=== PATIENT | female | born 2000 | race Caucasian/White ===

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

== ENCOUNTER 2020-03-12 15:00 | Emergency (ER) | payer OTHER, SELFPAY ==
[2020-03-12 15:08] VITALS: BP 132/72; PULSE 82; RESP 16; TEMP 36.5; O2SAT 100
--- NOTE | 2020-03-12 15:34 | ED_ITS ---
HPI - Female Genitourinary General Chief complaint: OB/Uterine Contractions Stated complaint: 11wks, lightheaded, dizzy, nausea, shakey Time Seen by Provider: 03/12/20 15:05 Source: patient Mode of arrival: Ambulatory Limitations: no limitations History of Present Illness HPI Narrative: 19-year-old female nonsmoker with noncontributory medical history is a at 11 weeks presents with some nausea and lightheadedness over the course of the past day or 2. Vomiting or diarrhea. She denies vaginal bleeding, discharge or leakage of fluid. She denies pelvic pain whatsoever. She recently had of ultrasound a few days ago that was normal and has had no pain or discomfort since. She denies any change in appetite or fever or chills. She has had no runny nose, sore throat or cough. She denies ear fullness, pain or discharge. MD Complaint: other Onset (ago): hour(s) Severity: mild Patient : Yes Associated symptoms: nausea/vomiting Related Data Allergies Allergy/AdvReac Type Severity Reaction Status Date / Time No Known Drug Allergies Allergy Verified 11/12/18 08:50 Review of Systems Constitutional Constitutional: Denies chills, Reports fatigue, Denies fever(s), Denies frequent falls, Denies lethargy and Denies weakness Eyes Eyes: Denies change in vision, Denies eye discharge, Denies irritation and Denies loss of vision ENT Ears, Nose, Mouth, and Throat: Denies change in voice, Denies dizziness, Denies neck pain, Denies sore throat and Denies throat swelling Cardiovascular Cardiovascular: Denies chest pain, Denies irregular heart rhythm, Reports lightheadedness, Denies palpitations, Denies dyspnea, Denies dyspnea on exertion and Denies orthopnea Respiratory Respiratory: Denies cough, Denies dyspnea, Denies dyspnea on exertion and Denies wheezing Gastrointestinal Gastrointestinal: Denies abdominal pain, Denies change in bowel habits, Denies diarrhea, Denies nausea and Denies vomiting Genitourinary Genitourinary: Denies hematuria, Denies flank pain, Denies urinary incontinence and Denies urinary urgency Musculoskeletal Musculoskeletal: Denies back pain, Denies muscle weakness, Denies neck pain, Denies numbness and Denies tingling Integumentary/Breasts Skin/Breast: Denies pruritus, Denies erythema, Denies rash and Denies wounds Neurologic Neurologic: Denies behavioral changes, Denies confusion, Denies dizziness, Denies frequent falls, Denies loss of vision, Denies numbness, Denies tingling and Denies weakness Psychiatric Psychiatric: Denies anxiety, Denies behavioral changes, Denies confusion, Denies depression, Denies homicidal ideation and Denies suicidal ideation Endocrine Endocrine: Reports fatigue, Denies flushing and Denies palpitations Hematologic/Lymphatic Hematologic/Lymphatic: Denies easy bruising Allergic/Immunologic Allergic/Immunologic: Denies urticaria, Denies throat swelling and Denies w heezing Patient History Substance Use Type: does not use Exam Narrative Exam Narrative: GENERAL: [] year old patient appears stated age. Well-nourished, well-developed patient, in mild distress. HEAD: Atraumatic. Normocephalic. EYES: Pupils equal round and reactive. Extraocular motions intact. No scleral icterus. No injection or drainage. ENT: Dry mucous membranes Nose without bleeding, purulent drainage. Throat without erythema, tonsillar hypertrophy or exudate. Airway patent. NECK: Trachea midline. Non tender CARDIOVASCULAR: Regular rate and rhythm without murmurs, gallops, or rubs. RESPIRATORY: Clear to auscultation. Breath sounds equal bilaterally. No wheezes, rales, or rhonchi. GASTROINTESTINAL: Abdomen soft, non-tender, nondistended. EXTREMITIES: No edema or joint tenderness. BACK: Nontender without deformity or crepitance. No flank tenderness. NEURO: AOx3. SKIN: No rash or erythema of visible areas Initial Vital Signs Initial Vital Signs: Vital Signs Temperature 97.7 F 03/12/20 15:08 Pulse Rate 82 03/12/20 15:08 Respiratory Rate 16 03/12/20 15:08 Blood Pressure 132/72 03/12/20 15:08 Pulse Oximetry 100 03/12/20 15:08 Course Course Course Narrative: Patient feeling significantly better after a L of fluid. Orders Ordered: ED Orders 03/12/20 15:50 Complete Blood Count AUTO DIFF Stat Comprehensive Metabolic Panel Stat HCG Quantitative /Beta subunit Stat Discontinued Medications Sodium Chloride (Normal Saline 0.9%) 1,000 mls @ 1,000 mls/hr IV BOLUS ONE Stop: 03/12/20 17:07 Last Infusion: 03/12/20 18:00 Dose: 0 mls/hr Documented by: Admin: 03/12/20 16:26 Dose: 1,000 mls/hr Documented by: GEENVA Sodium Chloride (Normal Saline 0.9%) 500 mls @ 1,000 mls/hr IV BOLUS ONE Stop: 03/12/20 18:07 Last Admin: 03/12/20 18:16 Dose: Not Given Documented by: GENEVA Vital Signs Vital signs: Vital Signs - 8 hr 03/12/20 15:08 03/12/20 16:42 03/12/20 17:47 Temperature 97.7 F Pulse Rate 82 77 Pulse Rate [Orthostatic Lying] 79 Pulse Rate [Orthostatic Sitting] 73 Pulse Rate [Orthostatic Standing] 76 Respiratory Rate 16 17 Blood Pressure 132/72 Blood Pressure [Left Arm] 102/57 L Blood Pressure [Orthostatic Lying] 104/57 L Blood Pressure [Orthostatic Sitting] 111/64 Blood Pressure [Orthostatic Standing] 111/66 Pulse Oximetry 100 100 MDM - Female Genitourinary Lab Data Result diagrams: 03/12/20 15:50 03/12/20 15:50 Labs: Lab Results 03/12/20 03/12/20 Range/Units 15:50 15:50 WBC 11.3 H (4.5-11.0) X10^3/uL RBC 4.53 (4.0-5.2) X10^6/uL Hgb 13.8 (12.0-16.0) g/dL Hct 40.2 (36-46) % MCV 88.8 (80-100) fL MCH 30.4 (26-34) PG MCHC 34.2 (30-36) % RDW 12.6 (11.6-14.8) % Plt Count 195 (150-400) X10^3/uL Neut % (Auto) 67.9 (50-75) % Lymph % (Auto) 24.8 L (25-40) % Gillespie % (Auto) 6.6 (3-14) % Eos % (Auto) 0.5 L (2-4) % Baso % (Auto) 0.2 (0-2) % Neut # (Auto) 7700 H (0335-8132) /uL Lymph # (Auto) 2800 (8635-2417) /uL Gillespie # (Auto) 800 (0-900) /uL Eos # (Auto) 100 (0-450) /uL Baso # (Auto) 0 (0-100) /uL Sodium 137 (137-145) mmol/L Potassium 4.0 (3.4-5.1) mmol/L Chloride 105 (98-107) mmol/L Carbon Dioxide 23 (22-32) mmol/L BUN 12 (7-17) mg/dL Creatinine 0.46 L (0.52-1.04) mg/dL Estimated GFR > 60.0 (>60) mL/min BUN/Creatinine Ratio 26.1 H (6-22) Glucose 73 (70-100) mg/dL Calcium 9.2 (8.4-10.2) mg/dL Total Bilirubin 0.4 (0.2-1.3) mg/dL AST 34 (14-36) IU/L ALT 22 (<35) IU/L Alkaline Phosphatase 34 L (38-126) U/L Total Protein 7.4 (6.3-8.2) g/dL Albumin 4.3 (3.5-5.0) g/dL Globulin 3.1 (1.7-4.1) g/dL Albumin/Globulin Ratio 1.4 (1.0-2.8) HCG, Quant [id number] mIU/mL Discharge Plan Departure Patient Disposition: Home Clinical Impression: Acute dehydration, Dizziness of unknown etiology Instructions: DI for Dehydration -- Adult Activity Restrictions/Additional Instructions: *You have been diagnosed with [ dizziness, likely a consequence of mild dehydration. Labs were very reassuring ] *What to do: *Take medications as directed *Follow up with your primary care provider in 2-3 days, call for an appointment. Let them know you were seen in the Emergency Department and that we ask that you be seen in follow up *Return to ER if you should have any new, worsening or concerning symptoms
[2020-03-12 15:56] LABS: Add Manual Diff / Slide Review NO; Basophils Absolute Auto 0 /uL (0-100); Basophils Percent Auto 0.2 % (0-2); Eosinophils Absolute Auto 100 /uL (0-450); Eosinophils Percent Auto 0.5 % (2-4); Hematocrit 40.2 % (36-46); Hemoglobin 13.8 g/dL (12.0-16.0); Lymphocytes Absolute Auto 2800 /uL (1100-4500); Lymphocytes Percent Auto 24.8 % (25-40); Mean Corpuscular HGB Conc 34.2 % (30-36); Mean Corpuscular Hemoglobin 30.4 PG (26-34); Mean Corpuscular Volume 88.8 fL (80-100); Monocytes Absolute Auto 800 /uL (0-900); Monocytes Percent Auto 6.6 % (3-14); Neutrophils Absolute Auto 7700 /uL (1500-7000); Neutrophils Percent Auto 67.9 % (50-75); Platelet Count 195 X10^3/uL (150-400); Red Blood Cell Count 4.53 X10^6/uL (4.0-5.2); Red Cell Distribution Width 12.6 % (11.6-14.8); White Blood Cell Count 11.3 X10^3/uL (4.5-11.0)
[2020-03-12 16:07] LABS: Alanine Aminotransferase 22 IU/L (<35); Albumin 4.3 g/dL (3.5-5.0); Albumin Globulin Ratio 1.4 (1.0-2.8); Alkaline Phosphatase 34 U/L (38-126); Aspartate Aminotransferase 34 IU/L (14-36); BUN Creatinine Ratio 26.1 (6-22); Bilirubin Total 0.4 mg/dL (0.2-1.3); Blood Urea Nitrogen 12 mg/dL (7-17); Calcium 9.2 mg/dL (8.4-10.2); Carbon Dioxide 23 mmol/L (22-32); Chloride 105 mmol/L (98-107); Estimated Glomerular Filt Rate > 60.0 mL/min (>60); Globulin 3.1 g/dL (1.7-4.1); Glucose 73 mg/dL (70-100); Sodium 137 mmol/L (137-145); Total Protein 7.4 g/dL (6.3-8.2)
[2020-03-12 16:09] LABS: HEMOLYSIS 51 (0-50)
[2020-03-12] MEDS: SODIUM CHLORIDE 0.9% 1,000 ML 1000 ML IV (16:26)
[2020-03-12 16:42] VITALS: BP 102/57; PULSE 77; RESP 17; O2SAT 100
[2020-03-12 16:49] LABS: HCG Quantitative /Beta subunit 101970 mIU/mL
[2020-03-12 17:47] VITALS: BP 104/57; BP 111/64; BP 111/66; PULSE 73; PULSE 76; PULSE 79
[2020-03-12 18:16] VITALS: BP 111/68; PULSE 73
== END 2020-03-12 18:18 | disposition home or self-care (01) ==
PROVIDERS: Emergency Provider Emergency Medicine
DX: O26.891 Other specified pregnancy related conditions, first trimester (principal); E86.0 Dehydration; R42 Dizziness and giddiness; Z3A.11 11 weeks gestation of pregnancy
CPT/HCPCS: 36415; 80053; 84702; 85025; 96360; 96361; 99284

== ENCOUNTER → 2020-05-12 10:29 | Outpatient (CLI) | payer OTHER, SELFPAY ==
--- NOTE | 2020-05-12 10:30 | DI.US.S_ITS ---
PROCEDURE: US OB >= 14 WEEKS FETUS INDICATIONS: ANATOMY OUTSIDE/PRIOR DATING DATA: Last menstrual period (LMP): 12/23/19. LMP-based estimated date of delivery (FRANCISCO): 09/28/20 . First dating scan (date and location): This study . Estimated date of delivery (FRANCISCO) from first dating scan: 09/30/20 . TECHNIQUE: Real-time scanning was performed of the fetus, with image documentation and biometric measurements. Endovaginal scanning: Not needed COMPARISON: None. FINDINGS: General: A single living intrauterine gestation is present. Presentation: Variable. Placenta: Placental position is anterior , without previa. Amniotic fluid index: 8.4 cm, normal range is 5-24 cm. heart rate: 135 beats per minute. Maternal cervical canal: 4.0 cm long. Normal lower limit is 2.5 cm. biometrics: Biparietal diameter: 4.3 cm, 19 weeks 0 days Head circumference: 17.5 cm, 20 weeks 0 days Abdominal circumference: 15.3 cm, 20 weeks 3 days Femur length: 3.2 cm, 20 weeks 0 days Estimated gestational age from initial scan: not applicable. Composite gestational age from present scan: 19 weeks 6 days Estimated weight and percentile: 339 g, 49th percentile Measurement variability for biometric dating: +/- 7 days from 14 weeks to 15 weeks 6 days gestation, +/- 10 days from 16 weeks to 21 weeks 6 days gestation, +/- 2 weeks from 22 weeks to 27 weeks 6 days gestation, +/- 3 weeks for 28 weeks gestation or later. weight reference: 4500 g or EFW >90/95% is considered macrosomia or large for gestational age. EFW <10% is small for gestational age. EFW 5% or less is considered intra-uterine growth restriction. Anatomic survey: Neuro: Ventricles are non-dilated at less than 10 mm. Cisterna magna is normal at 3-11 mm. Cerebellum is normal in size and morphology. Nuchal skin fold: Normal at less than 6 mm between 14-21 weeks gestational age. Face: Nose and lips, facial profile are normal. Spine: No evidence for spina bifida. Heart: 4-chambered heart is present, with poorly seen ventricular outflow tracts. Diaphragm: Diaphragm is intact. Stomach: Left-sided stomach is present. Kidneys: No hydronephrosis. Normal is less than 5 mm in 2nd trimester, less than 7 mm in 3rd trimester. Cord: 3-vessel cord has orthotopic insertion. Bladder: Normal in size. Extremities: All 4 extremities identified. IMPRESSION: Appropriate interval growth, no anomaly seen. However, the ventricular outflow tracts were relatively poorly seen in this patient due to positioning. Follow-up limited Ob ultrasound in 1-2 weeks is recommended to attempt completion of the anatomic survey. Amniotic fluid index is within the normal limits but near the lower limits of normal. Amniotic fluid assessment can also be performed on anticipated follow-up limited Ob study. Dictated by: Arley Ramirez M.D. on 05/12/2020 at 13:21 Approved by: Arley Ramirez M.D. on 05/12/2020 at 13:27
== END ==
PROVIDERS: PCP Family Medicine; Referring Provider Family Medicine; Visit Provider Family Medicine
DX: Z34.82 Encounter for supervision of other normal pregnancy, second trimester (principal); Z3A.19 19 weeks gestation of pregnancy
CPT/HCPCS: 76811

== ENCOUNTER → 2020-05-26 15:55 | Outpatient (CLI) | payer OTHER, SELFPAY ==
--- NOTE | 2020-05-26 15:56 | DI.US.S_ITS ---
PROCEDURE: US OB FOLLOW UP INDICATIONS: FOLLOW-UP FOR CARDIAC IMAGES OUTSIDE/PRIOR DATING DATA: Last menstrual period (LMP): 12/23/2019. LMP-based estimated date of delivery (FRANCISCO): 09/28/2020 . First dating scan (date and location): . Estimated date of delivery (FRANCISCO) from first dating scan: 09/30/2020 . TECHNIQUE: Real-time scanning was performed of the fetus, with image documentation and biometric measurements. Endovaginal scanning: No COMPARISON: [facility], , OB >= 14 WEEKS FETUS, 05/12/2020, 11:01. FINDINGS: General: A single living intrauterine gestation is present. Presentation: Breech. Placenta: Placental position is anterior , without previa. Amniotic fluid index: 10.0 cm, normal range is 5-24 cm. heart rate: 143 beats per minute. Maternal cervical canal: 3.8 cm long. Normal lower limit is 2.5 cm. biometrics: IMPRESSION: Single living IUP redemonstrated and today's exam demonstrating normal appearance of the four-chamber heart and cardiac outflow tracts. Dictated by: Hernando Noble [facility] Interpreted: iZa Carey MD on 05/26/2020 at 16:51 Approved by: Zia Carey M.D. on 05/26/2020 at 16:55
== END ==
PROVIDERS: PCP Family Medicine; Referring Provider Family Medicine; Visit Provider Family Medicine
DX: Z36.2 Encounter for other antenatal screening follow-up (principal); Z3A.22 22 weeks gestation of pregnancy
CPT/HCPCS: 76816

== ENCOUNTER → 2020-06-12 10:11 | Outpatient (CLI) | payer OTHER, SELFPAY ==
[2020-06-12 11:58] LABS: Add Manual Diff / Slide Review NO; Basophils Absolute Auto 0 /uL (0-100); Basophils Percent Auto 0.1 % (0-2); Eosinophils Absolute Auto 0 /uL (0-450); Eosinophils Percent Auto 0.2 % (2-4); Hematocrit 38.1 % (36-46); Hemoglobin 12.7 g/dL (12.0-16.0); Lymphocytes Absolute Auto 1800 /uL (1100-4500); Lymphocytes Percent Auto 15.2 % (25-40); Mean Corpuscular HGB Conc 33.3 % (30-36); Mean Corpuscular Hemoglobin 30.7 PG (26-34); Mean Corpuscular Volume 92.2 fL (80-100); Monocytes Absolute Auto 700 /uL (0-900); Monocytes Percent Auto 5.6 % (3-14); Neutrophils Absolute Auto 9300 /uL (1500-7000); Neutrophils Percent Auto 78.9 % (50-75); Platelet Count 174 X10^3/uL (150-400); Red Blood Cell Count 4.13 X10^6/uL (4.0-5.2); Red Cell Distribution Width 12.6 % (11.6-14.8); White Blood Cell Count 11.8 X10^3/uL (4.5-11.0)
[2020-06-12 12:14] LABS: GTT (PREG) 1 Hour PP 50gm Dose 85 mg/dL (76-139)
== END ==
PROVIDERS: PCP Family Medicine; Referring Provider Family Medicine; Visit Provider Family Medicine
DX: Z34.90 Encounter for supervision of normal pregnancy, unspecified, unspecified trimester (principal)
CPT/HCPCS: 36415; 82950; 85025

== ENCOUNTER 2020-08-16 12:36 | Outpatient (CLI) | payer OTHER, SELFPAY ==
--- NOTE | 2020-08-16 13:35 | P.TNLD_ITS ---
Visit Information Visit Information Date of evaluation: 08/16/20 Primary OB Provider: Ghazala Thapa On-call OB Provider: Shayy Graham Reason for Evaluation: Yes pre-term labor Comments/Additional reasons for admission: Patient came in for evaluation after seeing something that looked like old blood on her underwear. Vital Signs Vital Signs: BP 124/73, P 82, T 97.3 [facility] Medical History (Updated 08/16/20 @ 13:49 by Shayy Graham MD) Nephrolithiasis (Acute) Ovarian cyst (Acute) Recurrent UTI (Acute ~2018) Surgical History (Updated 05/11/20 @ 09:18 by Maryanne Akers, RN) H/O wisdom tooth extraction (Acute ~2015) History of tonsillectomy (Acute ~2011) Family History (Updated 05/11/20 @ 10:16 by Maryanne Akers, RN) Mother Kidney stones Father Kidney stones Grandfather No problems noted. Grandmother No problems noted. Grandfather Myocardial infarction Grandmother Diabetes mellitus Type 2 diabetes mellitus Cancer Uterine cancer Family/Other Diabetes mellitus Type 2 diabetes mellitus Family/Other Myocardial infarction Hyperlipidemia Hypertension Family/Other Down syndrome Social History marital status: unmarried,single (States she has good support) number of children: 0 household members: other pets and animals: No education level: high school occupational status: employed current occupational exposures/hazards: Yes Previous occupational history: Office Job special neetu needs: No Smoking Status: Never smoker second hand exposure: No alcohol intake: never substance use type: does not use Review of Systems Review of Systems Narrative: Patient denies headaches, scotomata, epigastric pain. Patient has been having some mild menstrual cramp like discomfort that comes and goes. She also has [place] contractions. No fevers. She was concerned because she saw something that might have been old blood on her underwear. Good movement. No abdominal pain. ROS: Yes All systems reviewed with the patient and are negative except as otherwise documented Exam Narrative Exam Narrative: Abdomen is soft, nontender. Normal external genitalia. Speculum exam reveals white discharge no blood in the vagina. No obvious fluid leakage. fibronectin was collected. Vaginal exam the cervix is long, closed, high. Evaluation Evaluation Baseline heart rate: 130 Variability: Moderate (11-25) monitor accelerations: Present monitor decelerations: Absent Uterine Contraction Intensity: Mild Category of Tracing: Reactive Cervical dilation (cm): 0 Cervical effacement (%): 0 station: -4 Comments: fibronectin sent Diagnosis, Plan/Disposition Final Diagnosis (1) 33 weeks gestation of : Status: Acute (2) False labor: Status: Acute Plan/Disposition Plan: No obvious blood in the vagina with no obvious pre term labor signs or symptoms. fibronectin collected. Patient is to push fluids and rest. Call if any changes. OB Disposition: home
[2020-08-16 14:40] LABS: Fetal Fibronectin Negative
== END 2020-08-16 13:30 | disposition home or self-care (01) ==
LOC: LABOR 13:23 → OB 08-17 10:02
PROVIDERS: PCP Family Medicine; Referring Provider Specialist; Visit Provider Specialist
DX: O47.03 False labor before 37 completed weeks of gestation, third trimester (principal); N89.8 Other specified noninflammatory disorders of vagina; Z3A.33 33 weeks gestation of pregnancy
CPT/HCPCS: 59025; 82731; G0378; G0379